=== PATIENT | female | born 1955 | race Caucasian/White ===

== ENCOUNTER → 2016-05-14 13:30 | Outpatient (CLI) | payer MEDICARE ==
[~2016-05-14 13:30] MED LIST: BYSTOLIC20 MG PO; CYCLOBENZAPRINE10 MG PO; ESTRACE2 MG PO; FOLATE0.4 MG PO; HYDROCODONE-APA1 TAB PO; LIPITOR20 MG PO; LISINOPRIL5 MG PO; MULTIPLE VITAMI1 TA1 PO; PREDNISONE2.5 MG PO; VALIUM5 MG PO; VOLTAREN75 MG PO
[2016-05-21 15:00] VITALS: BMI 31.4
== END | disposition home or self-care (01) ==
LOC: D.LABREF 13:30
DX: M65.849 Other synovitis and tenosynovitis, unspecified hand (principal)

== ENCOUNTER 2016-05-21 13:54 | Outpatient (CLI) | payer MEDICARE ==
[~2016-05-21] VITALS: Ht 154.9 cm; Wt 75.5 kg
[2016-05-21 15:00] VITALS: BP 101/47; Ht 154.9 cm; Wt 75.5 kg
[2016-05-21] MEDS ORDERED: ESTRACE2 MG PO (15:29)
[2016-05-21] MEDS ORDERED: BYSTOLIC20 MG PO (15:31)
[2016-05-21] MEDS ORDERED: VOLTAREN75 MG PO (15:32)
[2016-05-21] MEDS ORDERED: PREDNISONE2.5 MG PO (15:33)
[2016-05-21] MEDS ORDERED: LIPITOR20 MG PO (15:34)
[2016-05-21] MEDS ORDERED: HYDROCODONE-APA1 TAB PO (15:36)
[2016-05-21] MEDS ORDERED: LISINOPRIL5 MG PO (15:36)
[2016-05-21] MEDS ORDERED: FOLATE0.4 MG PO (15:37)
[2016-05-21] MEDS ORDERED: MULTIPLE VITAMI1 TA1 PO (15:37)
[2016-05-21] MEDS ORDERED: VALIUM5 MG PO (15:38)
[2016-05-21] MEDS ORDERED: CYCLOBENZAPRINE10 MG PO (15:38)
== END 2016-05-21 16:00 | disposition home or self-care (01) ==
LOC: D.OPS 13:54
DX: B95.61 Methicillin susceptible Staphylococcus aureus infection as the cause of diseases classified elsewhere (principal)